=== PATIENT | male | born 1970 | race Caucasian/White ===

== ENCOUNTER 2018-12-30 07:55 | Emergency (ER) | payer BC ==
[~2018-12-30] VITALS: Ht 185.4 cm; Wt 113.6 kg
[2018-12-30 07:57] VITALS: BP 141/99; Ht 185.4 cm; Wt 113.6 kg
[2018-12-30] MEDS ORDERED: VALIUM5 MG PO (09:04)
[2018-12-30] MEDS ORDERED: HYDROCODON-ACE1 EA10 PO (09:04)
== END 2018-12-30 14:31 | disposition home or self-care (01) ==
LOC: D.ER 07:55
DX: S49.92XA Unspecified injury of left shoulder and upper arm, initial encounter (principal); W00.1XXA Fall from stairs and steps due to ice and snow, initial encounter; Y93.89 Activity, other specified; Y92.019 Unspecified place in single-family (private) house as the place of occurrence of the external cause